=== PATIENT | female | born 1965 | race Caucasian/White ===

== ENCOUNTER 2017-06-04 21:39 | Emergency (ER) | payer MEDICAID ==
[~2017-06-04] VITALS: Ht 170.2 cm; Wt 91.8 kg
[~2017-06-04 21:39] MED LIST: ALPR1TAB2; AMLO5TAB2; CARBAMAZEPINE; HYDR-882
[2017-06-04 22:55] VITALS: BP 142/91
[2017-06-04] MEDS ORDERED: ZIPRASIDONE 20 MG INJ IM ONE ×2 (23:00→23:05)
== END 2017-06-04 23:38 | disposition home or self-care (01) ==
LOC: ED 23:20
DX: F41.1 Generalized anxiety disorder (principal); F11.23 Opioid dependence with withdrawal; I10 Essential (primary) hypertension
CPT/HCPCS: 96372; 99284; J3486

== ENCOUNTER 2017-07-05 21:03 | Emergency (ER) | payer MEDICAID ==
[~2017-07-05] VITALS: Ht 167.6 cm; Wt 92.1 kg
[2017-07-05] MEDS ORDERED: LAMO150T PO (22:03)
[2017-07-05] MEDS ORDERED: HYDR12.53 PO (22:04)
[2017-07-05] MEDS ORDERED: METH40TA3 PO (22:05)
[2017-07-05 22:06] VITALS: BP 134/83
[2017-07-05 22:17] LABS: HEMATOCRIT 41.8 % (34.6-47.8); HEMOGLOBIN 14.1 g/dL (11.7-16.4); WHITE BLOOD COUNT 7.3 x10^3/uL (3.4-10)
[2017-07-05 22:25] LABS: BLOOD UREA NITROGEN 9 mg/dL (7-18)
[2017-07-05 22:33] LABS: IS PT STATUS REG ER OR PRE ER? YES
== END 2017-07-05 23:18 | disposition home or self-care (01) ==
LOC: ED 23:12
DX: R07.89 Other chest pain (principal); F41.9 Anxiety disorder, unspecified; I10 Essential (primary) hypertension
CPT/HCPCS: 36415; 71010; 80048; 82040; 83735; 84484; 85025; 93005; 99285

== ENCOUNTER 2018-01-05 14:42 | Emergency (ER) | payer MEDICAID ==
[~2018-01-05] VITALS: Ht 167.6 cm; Wt 89.6 kg
[~2018-01-05 14:42] MED LIST changes: +HYDR12.53 PO; +LAMO150T2 PO; +METH40TA3 PO
[2018-01-05] MEDS ORDERED: FAMOTIDINE 20 MG TABLET ONE (15:24)
[2018-01-05] MEDS ORDERED: MAALOX/HYOSCYAMINE/LIDOCAINE 45 ML BTL ONE (15:24)
[2018-01-05] MEDS ORDERED: MAALOX/HYOSCYAMINE/LIDOCAINE 45 ML BTL PO ONE (15:30)
[2018-01-05] MEDS ORDERED: FAMOTIDINE 20 MG TABLET PO ONE (15:30)
[2018-01-05 15:31] LABS: BASOPHILS # (AUTO) 0.06 x10^3/uL (0-0.1); BASOPHILS % (AUTO) 1 % (0-1); EOSINOPHILS # (AUTO) 0.02 x10^3/uL (0-0.4); EOSINOPHILS % (AUTO) 0 % (1-7); LYMPHOCYTES # (AUTO) 1.61 x10^3/uL (1-3.4); LYMPHOCYTES % (AUTO) 14 % (22-44); MD NO; MEAN CORPUSCULAR HEMOGLOBIN 30.8 pg (27.0-34.8); MEAN CORPUSCULAR HGB CONC 34.3 g/dL (32.4-35.8); MEAN CORPUSCULAR VOLUME 89.6 fL (80-100); MEAN PLATELET VOLUME 8.6 fL (7.4-10.4); MONOCYTES # (AUTO) 0.52 x10^3/uL (0.2-0.8); MONOCYTES % (AUTO) 5 % (2-9); NEUTROPHILS # (AUTO) 9.49 x10^3/uL (1.8-6.8); NEUTROPHILS % (AUTO) 81 % (42-75); PLATELET COUNT 254 x10^3/uL (130-400); RED BLOOD COUNT 5.07 x10^6/uL (3.82-5.3); RED CELL DISTRIBUTION WIDTH 13.6 % (9.6-15.2)
[2018-01-05 15:42] VITALS: BP 125/87
[2018-01-05 15:43] LABS: ALBUMIN 4.1 g/dL (3.4-5.0); ANION GAP 13 mmol/L (5-15); CALCIUM 9.1 mg/dL (8.5-10.1); CHLORIDE 108 mmol/L (98-107)
[2018-01-05 15:46] LABS: ALANINE AMINOTRANSFERASE 38 U/L (12-78); ALKALINE PHOSPHATASE 95 U/L (45-117); BILIRUBIN,TOTAL 0.8 mg/dL (0.2-1.0); TOTAL PROTEIN 8.3 g/dL (6.4-8.2)
[2018-01-05 15:49] LABS: TROPONIN I < 0.015 ng/mL (0.000-0.045)
[2018-01-05 16:48] LABS: MICROSCOPIC INDICATED
[2018-01-05 17:19] LABS: CULTURE INDICATED? YES
== END 2018-01-05 17:56 | disposition home or self-care (01) ==
LOC: ED 17:50
DX: R10.13 Epigastric pain (principal); R07.2 Precordial pain; I10 Essential (primary) hypertension; G89.29 Other chronic pain; Z90.710 Acquired absence of both cervix and uterus
CPT/HCPCS: 36415; 71045; 76700; 80053; 81001; 83690; 84484; 85025; 87086; 93005; 99285

== ENCOUNTER 2018-06-07 20:39 | Emergency (ER) | payer MEDICAID ==
[~2018-06-07] VITALS: Ht 167.6 cm; Wt 97.7 kg
[~2018-06-07 20:39] MED LIST changes: -AMLO5TAB2; +AMLO5TAB7; +HYDR-3653; -HYDR-882
[2018-06-07] MEDS ORDERED: METOCLOPRAMIDE 5 MG/ML, 2ML IVPush ONE (21:30)
[2018-06-07] MEDS ORDERED: MORPHINE SULFATE 4 MG/ML, 1ML IVPush PRN (21:30)
[2018-06-07] MEDS ORDERED: MORPHINE SULFATE 4 MG/ML, 1ML ONE (21:46)
[2018-06-07] MEDS ORDERED: METOCLOPRAMIDE 5 MG/ML, 2ML ONE (21:46)
[2018-06-07 22:08] LABS: MICROSCOPIC NOT IND
[2018-06-07 22:11] LABS: CULTURE INDICATED? NO
[2018-06-07 22:41] LABS: BASOPHILS # (AUTO) 0.02 x10^3/uL (0-0.1); BASOPHILS % (AUTO) 0 % (0-1); EOSINOPHILS # (AUTO) 0.06 x10^3/uL (0-0.4); EOSINOPHILS % (AUTO) 1 % (1-7); LYMPHOCYTES # (AUTO) 1.66 x10^3/uL (1-3.4); LYMPHOCYTES % (AUTO) 28 % (22-44); MD NO; MEAN CORPUSCULAR HEMOGLOBIN 31.9 pg (27.0-34.8); MEAN CORPUSCULAR HGB CONC 34.6 g/dL (32.4-35.8); MEAN PLATELET VOLUME 7.9 fL (7.4-10.4); MONOCYTES # (AUTO) 0.37 x10^3/uL (0.2-0.8); MONOCYTES % (AUTO) 6 % (2-9); NEUTROPHILS # (AUTO) 3.75 x10^3/uL (1.8-6.8); NEUTROPHILS % (AUTO) 64 % (42-75); PLATELET COUNT 280 x10^3/uL (130-400); RED BLOOD COUNT 4.36 x10^6/uL (3.82-5.3); RED CELL DISTRIBUTION WIDTH 12.9 % (9.6-15.2)
[2018-06-07 22:51] LABS: ALANINE AMINOTRANSFERASE 46 U/L (12-78); ANION GAP 12 mmol/L (5-15); CALCIUM 8.3 mg/dL (8.5-10.1); CHLORIDE 108 mmol/L (98-107); CREATININE 0.73 mg/dL (0.55-1.02)
[2018-06-07 22:55] LABS: ALKALINE PHOSPHATASE 90 U/L (45-117); BILIRUBIN,TOTAL 0.3 mg/dL (0.2-1.0); TOTAL PROTEIN 8.2 g/dL (6.4-8.2); TROPONIN I < 0.015 ng/mL (0.000-0.045)
[2018-06-07 23:49] VITALS: BP 146/85
[2018-06-08] MEDS ORDERED: MAALOX/HYOSCYAMINE/LIDOCAINE 45 ML BTL PO ONE
[2018-06-08] MEDS ORDERED: MAALOX/HYOSCYAMINE/LIDOCAINE 45 ML BTL ONE (00:06)
== END 2018-06-08 00:21 | disposition home or self-care (01) ==
LOC: ED 21:56
DX: K29.20 Alcoholic gastritis without bleeding (principal); F10.10 Alcohol abuse, uncomplicated; G89.29 Other chronic pain; I10 Essential (primary) hypertension; Z90.710 Acquired absence of both cervix and uterus; Z88.6 Allergy status to analgesic agent; Z85.41 Personal history of malignant neoplasm of cervix uteri; Z79.899 Other long term (current) drug therapy
CPT/HCPCS: 36415; 76700; 80053; 80307; 81003; 83690; 84484; 85025; 86677; 93005; 96374; 96375; 99285; J2765

== ENCOUNTER 2018-07-31 16:56 | Emergency (ER) | payer MEDICAID ==
[~2018-07-31] VITALS: Ht 167.6 cm; Wt 100.8 kg
[2018-07-31 17:11] VITALS: BP 139/114
[2018-07-31] MEDS ORDERED: HYDROcodone/APAP 5/325 TABLET PO STA (18:12)
[2018-07-31] MEDS ORDERED: HYDROcodone/APAP 5/325 TABLET ONE (18:32)
== END 2018-07-31 18:41 | disposition home or self-care (01) ==
LOC: ED 18:30
DX: S39.012A Strain of muscle, fascia and tendon of lower back, initial encounter (principal); M79.672 Pain in left foot; M25.551 Pain in right hip; I10 Essential (primary) hypertension; M54.9 Dorsalgia, unspecified; G89.29 Other chronic pain; Z90.710 Acquired absence of both cervix and uterus; W01.0XXA Fall on same level from slipping, tripping and stumbling without subsequent striking against object, initial encounter; Y93.89 Activity, other specified; Y99.8 Other external cause status; Y92.89 Other specified places as the place of occurrence of the external cause
CPT/HCPCS: 99283; 99284

== ENCOUNTER 2019-01-23 04:58 | Emergency (ER) | payer MEDICAID ==
[~2019-01-23] VITALS: Ht 167.6 cm; Wt 91.0 kg
[~2019-01-23 04:58] MED LIST changes: +AMLO-150; -AMLO5TAB7; +HYDR12.517 PO; -HYDR12.53 PO
--- NOTE | 2019-01-23 05:17 | NUR ---
NELIA. REPORT RECEIVED FROM EMS. PT C/O N/V/D X 5DAYS, BUT ALL OF THEM RESOLVED TODAY. PT C/O ALL QUADRANTS ABD PAIN NOW. +ETOH. HX OF ANXIETY/DEPRESSION. PT'S AOX4. RESPS EVEN AND UNLABORED. BP/SPO2 MONITORS IN PLACE. CALL LIGHT WITHIN REACH.
--- NOTE | 2019-01-23 05:18 | NUR ---
PT AMB TO BR AND BACK TO ROOM WITH STEADY GAIT.
[2019-01-23] MEDS ORDERED: ONDANSETRON 2MG/ML, 2ML ONE (05:25)
[2019-01-23] MEDS ORDERED: LORazepam 2 MG/ML, 1ML ONE (05:26)
[2019-01-23] MEDS ORDERED: SODIUM CHLORIDE 0.9% 1,000ML IVBOLUS ONE (05:30)
[2019-01-23] MEDS ORDERED: ONDANSETRON 2MG/ML, 2ML IVPush ONE (05:30)
[2019-01-23] MEDS ORDERED: LORazepam 2 MG/ML, 1ML IVPush ONE (05:30)
[2019-01-23] MEDS ORDERED: SODIUM CHLORIDE FLUSH 10ML SYR IVF ONE (05:30)
--- NOTE | 2019-01-23 05:32 | NUR ---
PT IN US NOW.
[2019-01-23 05:35] LABS: MICROSCOPIC INDICATED
[2019-01-23 05:49] LABS: CULTURE INDICATED? YES
[2019-01-23] MEDS: SODIUM CHLORIDE 0.9% 1,000 ML IV ONE ×2 (06:11→06:36)
--- NOTE | 2019-01-23 06:19 | NUR ---
PT MEDICATED PER EMAR. PT TOLERATED WELL. PT'S AOX4. RESPS EVEN AND UNLABORED.
[2019-01-23 06:23] LABS: BASOPHILS # (AUTO) 0.01 x10^3/uL (0-0.1); BASOPHILS % (AUTO) 0 % (0-1); EOSINOPHILS # (AUTO) 0.01 x10^3/uL (0-0.4); EOSINOPHILS % (AUTO) 0 % (1-7); LYMPHOCYTES % (AUTO) 22 % (22-44); MD NO; MEAN CORPUSCULAR HEMOGLOBIN 32.2 pg (27.0-34.8); MEAN CORPUSCULAR HGB CONC 34.2 g/dL (32.4-35.8); MEAN CORPUSCULAR VOLUME 94.3 fL (80-100); MEAN PLATELET VOLUME 7.6 fL (7.4-10.4); MONOCYTES # (AUTO) 0.29 x10^3/uL (0.2-0.8); MONOCYTES % (AUTO) 6 % (2-9); NEUTROPHILS # (AUTO) 3.58 x10^3/uL (1.8-6.8); NEUTROPHILS % (AUTO) 72 % (42-75); PLATELET COUNT 119 x10^3/uL (130-400); RED BLOOD COUNT 4.17 x10^6/uL (3.82-5.3); RED CELL DISTRIBUTION WIDTH 13.8 % (9.6-15.2)
[2019-01-23 06:35] LABS: ALBUMIN 3.6 g/dL (3.4-5.0); ANION GAP 10 mmol/L (5-15); CALCIUM 7.7 mg/dL (8.5-10.1); CHLORIDE 105 mmol/L (98-107)
[2019-01-23 06:40] LABS: ALANINE AMINOTRANSFERASE 40 U/L (12-78); ALKALINE PHOSPHATASE 82 U/L (45-117); BILIRUBIN,TOTAL 0.7 mg/dL (0.2-1.0); CREATININE 0.55 mg/dL (0.55-1.02); TOTAL PROTEIN 7.1 g/dL (6.4-8.2)
--- NOTE | 2019-01-23 06:55 | NUR ---
REPORT GIVEN TO ELIJAH VANG
--- NOTE | 2019-01-23 07:01 | NUR ---
PT RESTING ON [facility]UN[facility]. ALL CONCERNS ADRESSED. CHART UP FOR JESSICA. CALL LIGHT IN REACH.
[2019-01-23 08:57] VITALS: BP 139/105
--- NOTE | 2019-01-23 08:57 | NUR ---
Patient given discharge instructions and they have confirmed that they understand the instructions. Patient ambulatory with steady gait. Pt left with all personal belongings, d/c paperwork, prescriptions, and taxi voucher.
== END 2019-01-23 09:13 | disposition home or self-care (01) ==
LOC: ED 08:15
DX: R10.84 Generalized abdominal pain (principal); R11.2 Nausea with vomiting, unspecified; E86.0 Dehydration; F10.10 Alcohol abuse, uncomplicated; I10 Essential (primary) hypertension
CPT/HCPCS: 36415; 74022; 76700; 80053; 81001; 83690; 85025; 87086; 96361; 96374; 96375; 99284; J2060; J2405; J7030

== ENCOUNTER 2019-02-18 15:13 | Emergency (ER) | payer MEDICAID ==
[~2019-02-18] VITALS: Ht 167.6 cm; Wt 97.3 kg
--- NOTE | 2019-02-18 15:15 | NUR ---
Called from lobby for triage, no answer
--- NOTE | 2019-02-18 15:21 | NUR ---
Called from lobby for triage, no answer
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
--- NOTE | 2019-02-18 16:04 | NUR ---
PT AMBULATORY TO ROOM 18. PT STATES "I HAVE TERRIBLE ODOR AND DISCHARGE FROM MY VAGINA AND MY URINE SMELLS. I HAVE AN APPT WITH MY PRIMARY ON THE 17TH BUT IT SMELLS SO BAD I CAN'T WAIT. I'M SUPER ANXIOUS AND MY BACK IS KILLING ME, CAN I GET PAIN MEDS AND SOMETHING FOR ANXIETY?" PT EDUCATED ON PLAN OF CARE. VERBALIZED UNDERSTANDING.
[2019-02-18 16:16] LABS: ALBUMIN 3.8 g/dL (3.4-5.0); ANION GAP 9 mmol/L (5-15); CALCIUM 8.1 mg/dL (8.5-10.1); CHLORIDE 110 mmol/L (98-107); CREATININE 0.65 mg/dL (0.55-1.02)
[2019-02-18 16:20] LABS: MEAN CORPUSCULAR HEMOGLOBIN 31.7 pg (27.0-34.8); MEAN CORPUSCULAR HGB CONC 32.8 g/dL (32.4-35.8); MEAN CORPUSCULAR VOLUME 96.7 fL (80-100); MEAN PLATELET VOLUME 8.2 fL (7.4-10.4); PLATELET COUNT 148 x10^3/uL (130-400); RED BLOOD COUNT 4.27 x10^6/uL (3.82-5.3); RED CELL DISTRIBUTION WIDTH 14.8 % (9.6-15.2)
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
[2019-02-18 16:53] LABS: MD MORPH REVIEW ONLY
[2019-02-18 16:54] LABS: BASOPHILS # (AUTO) 0.02 x10^3/uL (0-0.1); BASOPHILS % (AUTO) 0 % (0-1); EOSINOPHILS # (AUTO) 0.04 x10^3/uL (0-0.4); EOSINOPHILS % (AUTO) 1 % (1-7); LYMPHOCYTES # (AUTO) 1.79 x10^3/uL (1-3.4); LYMPHOCYTES % (AUTO) 27 % (22-44); MONOCYTES # (AUTO) 0.47 x10^3/uL (0.2-0.8); MONOCYTES % (AUTO) 7 % (2-9); NEUTROPHILS # (AUTO) 4.33 x10^3/uL (1.8-6.8); NEUTROPHILS % (AUTO) 65 % (42-75)
[2019-02-18 16:55] LABS: <PLATELET ESTIMATE> ADEQUATE; <RBC MORPHOLOGY> NORMAL; LARGE PLATELETS 1+
[2019-02-18] MEDS ORDERED: CEFTRIAXONE 250 MG ONE (17:21)
[2019-02-18] MEDS ORDERED: AZITHROMYCIN 250 MG TABLET ONE (17:21)
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
[2019-02-18 17:28] LABS: CULTURE INDICATED? YES; MICROSCOPIC INDICATED
[2019-02-18] MEDS ORDERED: AZITHROMYCIN 500 MG TABLET PO ONE (17:30)
[2019-02-18] MEDS ORDERED: CEFTRIAXONE 250 MG IM ONE (17:30)
--- NOTE | 2019-02-18 17:40 | NUR ---
PT MEDICATED PER MD ORDER. PT TOLERATED WELL.
[2019-02-18 17:46] LABS: CLUE CELLS PRESENT (NONE SEEN); WET PREP WBCS FEW (FEW)
[2019-02-18 18:06] VITALS: BP 104/57
--- NOTE | 2019-02-18 18:10 | NUR ---
Patient/Caregiver given discharge instructions and they have confirmed that they understand the instructions. Patient ambulatory with steady gait.
== END 2019-02-18 18:11 | disposition home or self-care (01) ==
LOC: ED 16:40
DX: N76.0 Acute vaginitis (principal); T19.2XXA Foreign body in vulva and vagina, initial encounter; G89.29 Other chronic pain; R10.30 Lower abdominal pain, unspecified; I10 Essential (primary) hypertension; Z90.710 Acquired absence of both cervix and uterus; Z72.9 Problem related to lifestyle, unspecified; X58.XXXA Exposure to other specified factors, initial encounter; Y93.89 Activity, other specified; Y92.89 Other specified places as the place of occurrence of the external cause; Y99.8 Other external cause status
CPT/HCPCS: 36415; 76830; 80048; 81001; 82040; 85025; 87077; 87086; 87186; 87210; 87491; 87591; 87808; 96372; 99284; J0696

== ENCOUNTER 2019-04-18 15:59 | Emergency (ER) | payer MEDICAID ==
[~2019-04-18] VITALS: Ht 167.6 cm; Wt 88.0 kg
[2019-04-18 18:47] VITALS: BP 118/77
== END 2019-04-18 18:49 | disposition home or self-care (01) ==
LOC: ED 16:39
DX: R60.0 Localized edema (principal); I10 Essential (primary) hypertension; Z90.710 Acquired absence of both cervix and uterus; Z88.5 Allergy status to narcotic agent
CPT/HCPCS: 36415; 80048; 82040; 83880; 85025; 93005; 93970; 99284

== ENCOUNTER 2019-04-26 01:14 | Emergency (ER) | payer MEDICAID ==
[~2019-04-26] VITALS: Ht 165.1 cm; Wt 88.6 kg
[2019-04-26 04:13] VITALS: BP 111/60
== END 2019-04-26 04:15 | disposition home or self-care (01) ==
LOC: ED 02:04
DX: S01.81XA Laceration without foreign body of other part of head, initial encounter (principal); F10.129 Alcohol abuse with intoxication, unspecified; I10 Essential (primary) hypertension; Z88.6 Allergy status to analgesic agent; W22.8XXA Striking against or struck by other objects, initial encounter; Y93.89 Activity, other specified; Y92.69 Other specified industrial and construction area as the place of occurrence of the external cause; Y99.8 Other external cause status
CPT/HCPCS: 12051; 70450; 90471; 90715; 99284

== ENCOUNTER 2019-07-28 14:56 | Emergency (ER) | payer MEDICAID ==
[~2019-07-28] VITALS: Ht 165.1 cm; Wt 87.0 kg
[2019-07-28 14:59] VITALS: BP 136/90
--- NOTE | 2019-07-28 15:14 | NUR ---
first contact with pt. pt states "I've just had the flu for like 2 weeks and I need some antibiotics or something" pt's aox4. resps even and unlabored. pa at bedside to evaluate at this time.
--- NOTE | 2019-07-28 15:58 | NUR ---
Patient given discharge instructions and they have confirmed that they understand the instructions. Patient ambulatory with steady gait.
== END 2019-07-28 15:59 | disposition home or self-care (01) ==
LOC: ED 15:53
DX: J15.9 Unspecified bacterial pneumonia (principal); F10.129 Alcohol abuse with intoxication, unspecified; Y90.0 Blood alcohol level of less than 20 mg/100 ml; J98.01 Acute bronchospasm; I10 Essential (primary) hypertension
CPT/HCPCS: 71046; 99283

== ENCOUNTER 2020-02-26 17:03 | Emergency (ER) | payer MEDICAID ==
[~2020-02-26] VITALS: Ht 167.6 cm; Wt 85.1 kg
[~2020-02-26 17:03] MED LIST changes: -LAMO150T2 PO; +LAMO150T4 PO
--- NOTE | 2020-02-26 17:44 | NUR ---
FORMULATOR: CALLED PT FROM LOBBY NO ANSWER
--- NOTE | 2020-02-26 17:51 | NUR ---
HAND SALTER: PT TO ROOM FROM LOBBY
--- NOTE | 2020-02-26 18:15 | NUR ---
THIS IS A 54 YO FEMALE COMING IN FOR BODY ACHES, SOB AND COUGH FOR THE PAST FEW DAYS, WITH RIGHT SIDED CHEST PAIN CAUSED BY COUGHING, NO RADIATION, RATED 4/10. A & OX4, RESPIRATIONS EVEN AND UNLABORED, SPEAKING IN FULL SENTENCES, SPO2 >90% ON RA, LUNG SOUNDS CLEAR THROUGHOUT. ALL MONITORING IN [place], SINUS TACHYCARDIC ON MONITOR. CALL LIGHT IN REACH. ERP IN ROOM FOR EVAL
[2020-02-26] MEDS ORDERED: ACETAMINOPHEN 325 MG TABLET PO ONE (18:30)
[2020-02-26 18:44] LABS: ALBUMIN 3.5 g/dL (3.4-5.0); ANION GAP 12 mmol/L (5-15); BASOPHILS % (AUTO) 0 % (0-1); CALCIUM 8.1 mg/dL (8.5-10.1); CHLORIDE 100 mmol/L (98-107); CREATININE 0.77 mg/dL (0.55-1.02); EOSINOPHILS % (AUTO) 0 % (1-7); LYMPHOCYTES # (AUTO) 0.28 x10^3/uL (1-3.4); LYMPHOCYTES % (AUTO) 2 % (22-44); MD NO; MEAN CORPUSCULAR HEMOGLOBIN 31.1 pg (27.0-34.8); MEAN CORPUSCULAR HGB CONC 33.9 g/dL (32.4-35.8); MEAN CORPUSCULAR VOLUME 91.8 fL (80-100); MEAN PLATELET VOLUME 7.1 fL (7.4-10.4); MONOCYTES % (AUTO) 4 % (2-9); NEUTROPHILS % (AUTO) 94 % (42-75); PLATELET COUNT 160 x10^3/uL (130-400); RED BLOOD COUNT 4.79 x10^6/uL (3.82-5.3); RED CELL DISTRIBUTION WIDTH 16.8 % (9.6-15.2)
[2020-02-26] MEDS ORDERED: ACETAMINOPHEN 325 MG TABLET ONE (18:50)
[2020-02-26] MEDS ORDERED: SODIUM CHLORIDE FLUSH 10ML SYR IVF ONE (19:00)
[2020-02-26] MEDS ORDERED: SODIUM CHLORIDE 0.9% 1,000ML IVBOLUS ONE (19:00)
--- NOTE | 2020-02-26 19:01 | NUR ---
REPORT TO JL STACY. REGIS TO ASSUME CARE OF PATIENT AT THIS TIME
--- NOTE | 2020-02-26 19:37 | NUR ---
BREAK RN: PATIENT AMBULATORY WITH STEADY GAIT TO RESTROOM. UA CUP PROVIDED
[2020-02-26 19:53] LABS: MICROSCOPIC AUTO
[2020-02-26 20:26] LABS: AMPHETAMINE SCREEN, URINE Negative (Negative); BARBITURATE SCREEN, URINE Negative (Negative)
[2020-02-26] MEDS ORDERED: CEFTRIAXONE PMX 1GM/50ML 50 ML ONE (20:27)
[2020-02-26 20:28] LABS: BENZODIAZEPINE SCREEN, URINE Negative (Negative); CANNABINOID SCREEN, URINE Positive (Negative); COCAINE SCREEN, URINE Negative (Negative); METHADONE SCREEN, URINE Positive (Negative); OPIATE SCREEN, URINE Negative (Negative)
[2020-02-26] MEDS ORDERED: CEFTRIAXONE PMX 1GM/50ML 50 ML IVPB ONE (20:30)
[2020-02-26 20:45] VITALS: BP 124/75
--- NOTE | 2020-02-26 20:45 | NUR ---
PT RESTING IN [facility]. IV FLUIDS INFUSING. MD IS BEDSIDE AT THIS TIME TO DISCUSS PLAN OF CARE
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
== END 2020-02-26 21:10 ==
LOC: ED 18:52
DX: R50.9 Fever, unspecified (principal); R73.9 Hyperglycemia, unspecified; M79.10 Myalgia, unspecified site; R00.0 Tachycardia, unspecified; R06.02 Shortness of breath; F17.210 Nicotine dependence, cigarettes, uncomplicated; I10 Essential (primary) hypertension; Z90.710 Acquired absence of both cervix and uterus
CPT/HCPCS: 36415; 71045; 80048; 80307; 81001; 82040; 83605; 84145; 85025; 87040; 87086; 96365; 99284; 99406; J0696; J7030

== ENCOUNTER 2020-03-02 18:48 | Emergency (ER) | payer MEDICAID ==
[~2020-03-02] VITALS: Ht 167.6 cm; Wt 90.0 kg
[2020-03-02 18:53] VITALS: BP 129/78
--- NOTE | 2020-03-02 19:00 | NUR ---
BIB [facility] FOR "LETHARGY" PT BELIEVES SOMETHING IS WRONG WITH HER SUGARS, THOUGH FOUND AT [address] ON [address] PER [facility]. NAD NOTED AT THIS TIME. RESPIRATIONS EVEN AND UNLABORED ON RA.
[2020-03-02 19:34] LABS: MEAN CORPUSCULAR HGB CONC 33.8 g/dL (32.4-35.8); MEAN CORPUSCULAR VOLUME 91.7 fL (80-100); MEAN PLATELET VOLUME 7.2 fL (7.4-10.4); PLATELET COUNT 142 x10^3/uL (130-400); RED BLOOD COUNT 4.77 x10^6/uL (3.82-5.3); RED CELL DISTRIBUTION WIDTH 16.7 % (9.6-15.2)
[2020-03-02 19:36] LABS: ALBUMIN 3.3 g/dL (3.4-5.0); ANION GAP 12 mmol/L (5-15); CALCIUM 7.9 mg/dL (8.5-10.1); CHLORIDE 106 mmol/L (98-107); CREATININE 0.47 mg/dL (0.55-1.02)
[2020-03-02 19:40] LABS: TROPONIN I < 0.015 ng/mL (0.000-0.045)
[2020-03-02 20:13] LABS: BASOPHILS # (AUTO) 0.02 x10^3/uL (0-0.1); BASOPHILS % (AUTO) 1 % (0-1); EOSINOPHILS # (AUTO) 0.02 x10^3/uL (0-0.4); EOSINOPHILS % (AUTO) 1 % (1-7); LYMPHOCYTES # (AUTO) 1.98 x10^3/uL (1-3.4); LYMPHOCYTES % (AUTO) 52 % (22-44); MD SCAN; MONOCYTES # (AUTO) 0.29 x10^3/uL (0.2-0.8); MONOCYTES % (AUTO) 8 % (2-9); NEUTROPHILS # (AUTO) 1.51 x10^3/uL (1.8-6.8); NEUTROPHILS % (AUTO) 40 % (42-75)
--- NOTE | 2020-03-02 20:17 | NUR ---
PT AMBULATES TO BATHROOM WELL, BACK TO ROOM AND COLLECTS BELONGINGS, THEN REFUSES TO STAY IN ROOM. DISCUSSION ABOUT SITTING DOWN, STAYING FOR FULL DISCHARGE. PT REFUSES AND INSISTS ON LEAVING ED. "I'M SORRY, I JUST NEED TO GO." ERMD AWARE.
== END 2020-03-02 20:21 | disposition left against medical advice (07) ==
LOC: ED 19:46
DX: F10.220 Alcohol dependence with intoxication, uncomplicated (principal); R53.1 Weakness; I10 Essential (primary) hypertension; I44.4 Left anterior fascicular block; Z90.710 Acquired absence of both cervix and uterus; Y90.0 Blood alcohol level of less than 20 mg/100 ml
CPT/HCPCS: 36415; 71045; 80048; 82040; 84484; 85025; 93005; 99285

== ENCOUNTER 2020-03-04 21:53 | Emergency (ER) | payer MEDICAID ==
[~2020-03-04] VITALS: Ht 167.6 cm; Wt 82.1 kg
[2020-03-04 21:54] VITALS: BP 134/86
--- NOTE | 2020-03-05 00:38 | NUR ---
pt left, pt was seen leaving the properity
== END 2020-03-05 00:38 | disposition left against medical advice (07) ==
LOC: ED 03-05 00:27
DX: R05 Cough (principal)
CPT/HCPCS: 99283

== ENCOUNTER 2020-06-17 16:57 | Emergency (ER) | payer MEDICAID ==
--- NOTE | 2020-06-17 17:10 | NUR ---
NIL X1
--- NOTE | 2020-06-17 17:36 | NUR ---
NIL X2
--- NOTE | 2020-06-17 17:45 | NUR ---
CONVENTION PLANNER: PT SIGNED WAIVER OF LIABILTIY AND LEFT
== END 2020-06-17 17:47 | disposition left against medical advice (07) ==
LOC: ED 17:40
DX: M25.519 Pain in unspecified shoulder (principal); Z53.21 Procedure and treatment not carried out due to patient leaving prior to being seen by health care provider

== ENCOUNTER 2020-07-07 15:26 | Emergency (ER) | payer MEDICAID ==
[~2020-07-07] VITALS: Ht 167.6 cm; Wt 83.2 kg
[2020-07-07 15:47] VITALS: BP 152/77
--- NOTE | 2020-07-07 16:27 | NUR ---
Patient given discharge instructions and they have confirmed that they understand the instructions. Patient ambulatory with steady gait.
== END 2020-07-07 16:29 | disposition home or self-care (01) ==
LOC: ED 16:20
DX: M25.511 Pain in right shoulder (principal); Z76.0 Encounter for issue of repeat prescription; I10 Essential (primary) hypertension; Z90.710 Acquired absence of both cervix and uterus; Z85.41 Personal history of malignant neoplasm of cervix uteri
CPT/HCPCS: 99281

== ENCOUNTER 2020-07-18 11:09 | Emergency (ER) | payer MEDICAID ==
[~2020-07-18] VITALS: Ht 167.6 cm; Wt 83.7 kg
[2020-07-18 11:19] VITALS: BP 127/75
--- NOTE | 2020-07-18 11:52 | NUR ---
PT DID NOT WANT TO STAY IN ED FOR IMAGING RECOMMENDED BY PA.
[2020-07-18] MEDS ORDERED: ACETAMINOPHEN 325 MG TABLET PO ONE (13:00)
[2020-07-18] MEDS ORDERED: KETOROLAC 30 MG/1 ML IM ONE (13:00)
== END 2020-07-18 11:54 | disposition left against medical advice (07) ==
LOC: ED 11:48
DX: G89.29 Other chronic pain (principal); M25.511 Pain in right shoulder
CPT/HCPCS: 99281

== ENCOUNTER 2021-05-30 10:38 | Emergency (ER) | payer MEDICAID ==
[~2021-05-30] VITALS: Ht 167.6 cm; Wt 78.1 kg
[2021-05-30 10:51] VITALS: BP 128/65
--- NOTE | 2021-05-30 10:58 | NUR ---
RHEA JAY TO BEDSIDE. PT WITH C/O L. ELBOW PAIN.
[2021-05-30] MEDS ORDERED: KETOROLAC 30 MG/1 ML ONE (11:06)
--- NOTE | 2021-05-30 11:13 | NUR ---
Patient given discharge instructions and they have confirmed that they understand the instructions. Patient ambulatory with steady gait. NAD, all questions answered appropriately, denies additional needs at this time. No personal belongings left in room after discharge.
[2021-05-30] MEDS ORDERED: KETOROLAC 30 MG/1 ML IM ONE (11:30)
== END 2021-05-30 11:15 | disposition home or self-care (01) ==
LOC: ED 11:10
DX: M25.522 Pain in left elbow (principal); G89.29 Other chronic pain; I10 Essential (primary) hypertension; Z90.710 Acquired absence of both cervix and uterus
CPT/HCPCS: 96372; 99283; J1885

== ENCOUNTER 2021-06-04 16:49 | Emergency (ER) | payer MEDICAID ==
[~2021-06-04] VITALS: Ht 167.6 cm; Wt 78.1 kg
[2021-06-04 16:53] VITALS: BP 102/61
== END 2021-06-04 20:10 | disposition home or self-care (01) ==
LOC: ED 16:54
DX: F41.9 Anxiety disorder, unspecified (principal); G89.29 Other chronic pain; Z76.0 Encounter for issue of repeat prescription; F17.210 Nicotine dependence, cigarettes, uncomplicated